=== PATIENT | female | born 2000 | race Caucasian/White ===

== ENCOUNTER 2020-08-24 12:49 | Outpatient (CLI) | payer BC ==
[~2020-08-24] VITALS: Ht 162.6 cm; Wt 111.7 kg
[~2020-08-24 12:49] MED LIST: ALBUTEROL SULFAT3 M3 IH; ALBUTEROL0.83 MG/ML IH; ATIVAN 0.50.5 MG/TAB PO; AZITHROMYC200 MG/5 M PO; BACTRIM DS 8001 TAB PO; BENTYL 10MG10 MG/CAP PO; COMPAZINE 5MG TA5 MG IM; COMPAZINE 5MG TA5 MG PO; COMPAZINE5 MG PO; CONCERTA27 MG PO; FLORINEF ACETA0.1 MG PO; FLOVENT 44MCG I13 GM IH; INDERAL 10MG10 MG PO; INDERAL 20MG20 MG PO; LEXAPRO 10MG10 MG PO; NO HOME MEDICATIONS; PERCOCET 325 MG1 TA2 PO; PHENERGAN W/CO120 M1 PO; PREDNISONE5 MG/5 M1 PO; PROVENTIL4 MG PO; PROZAC 20MG20 MG PO; SYNTHROID0.05 MG/TA PO; TOPAMAX50 MG PO; TOPROL XL 25MG25 MG; WELLBUTRIN 75MG75 MG PO; WELLBUTRIN XL150 MG PO; ZOFRAN ODT4 MG PO
[2020-08-24 13:37] LABS: HEMATOCRIT 39.3 % (35.0-45.0); HEMOGLOBIN 12.4 g/dl (12.0-15.0); MEAN CELL VOLUME 87 fl (80.0-95.0); MEAN CORPUSCULAR HEMOGLOBIN 28 pg (26.0-32.0); MEAN CORPUSCULAR HGB CONC 32 g/dl (33.0-37.0); MEAN PLATELET VOLUME 11.4 fl (7.4-10.4); PLATELET COUNT 267 K/mm3 (130-400); REDCELL DISTRIBUTION WIDTH-CV 13.4 % (11.5-14.5)
[2020-08-24 13:48] VITALS: BP 107/57; PULSE 90; TEMP 98.5
[2020-08-24 13:48] LABS: ALBUMIN 3.7 gm/dL (3.5-5.0); BILIRUBIN,TOTAL 0.4 mg/dL (0.0-1.0); CALCIUM 8.6 mg/dL (8.4-10.2); CREATININE, serum 0.61 (0.52-1.25); POTASSIUM 3.4 mmol/L (3.4-5.0); TOTAL PROTEIN 6.5 gm/dL (6.4-8.2)
--- NOTE | 2020-08-24 15:02 | NUR ---
Patient presented from PCP office for IV hydration of NS 1000 ml over 1 hours. Alert and oriented. Blood drawn and urine sample obtained per order. Patient tolerated all well. After infusion she reported that she felt better. VSS. IV removed. She was excorted out to her private vehicle.
[2020-08-24 15:19] LABS: COLLECTION METHOD CLEAN CATCH
[2020-08-24 15:44] LABS: MUCOUS Present /lpf; PH 7 (5-8); URINE APPEARANCE Hazy; URINE BACTERIA None Seen /hpf; URINE BILIRUBIN Negative (NEGATIVE); URINE BLOOD Negative (NEGATIVE); URINE COLOR Yellow; URINE GLUCOSE Negative (NEGATIVE); URINE KETONE Negative (NEGATIVE); URINE LEUKOCYTE ESTERASE Trace (NEGATIVE); URINE NITRATE Negative (NEGATIVE); URINE PROTEIN(semi-quant) Negative (NEGATIVE); URINE UROBILINOGEN Negative (NEGATIVE)
== END 2020-08-24 15:19 ==
LOC: EUO 12:49
PROVIDERS: Family Medicine
DX: I95.1 Orthostatic hypotension (principal)
CPT/HCPCS: J7030

== ENCOUNTER 2021-08-16 22:17 | Emergency (ER) | payer BC | END 2021-08-16 22:29 | disposition left against medical advice (07) | LOC: COL.ER 22:17 | DX: R52 Pain, unspecified (principal) ==

== ENCOUNTER → 2024-05-30 | Outpatient (CLI) | payer BC ==
[~2024-05-30] MED LIST changes: +DIFLUCAN150 MG PO; +Gadoterate 20 ML VIAL IV ONE
== END ==
LOC: COL.RAD 12:20
DX: G44.009 Cluster headache syndrome, unspecified, not intractable (principal)
CPT/HCPCS: A9575

== ENCOUNTER → 2024-06-13 | Outpatient (CLI) | payer BC ==
[~2024-06-13] VITALS: Ht 160 cm; Wt 121.3 kg
[~2024-06-13] MED LIST changes: +ALDACTONE 25MG25 M1 PO; -Gadoterate 20 ML VIAL IV ONE; +IMITREX50 MG PO; +KLONOPIN 0.5MG0.5 MG PO; +PROVENTIL0.09 MG/A1 IH
[2024-06-13 13:15] VITALS: BP 96/67; PULSE 82; TEMP 97.8
[2024-06-13 14:35] VITALS: BP 122/89; PULSE 70
== END ==
LOC: COL.RAD 12:37
DX: G44.009 Cluster headache syndrome, unspecified, not intractable (principal)